=== PATIENT | male | born 1945 | race Two or more races ===

== ENCOUNTER → 2018-12-27 | Outpatient (CLI) | payer MEDICARE | END | disposition home or self-care (01) | LOC: MSC 10:40 | PROVIDERS: ATTEND Anesthesiology | DX: G89.4 Chronic pain syndrome (principal); R51 Headache; M25.562 Pain in left knee; M25.561 Pain in right knee; M25.551 Pain in right hip; M62.830 Muscle spasm of back; M54.5 Low back pain; F10.20 Alcohol dependence, uncomplicated ==